=== PATIENT | male | born 1985 | race Caucasian/White ===

== ENCOUNTER 2023-04-22 11:40 | Emergency (ER) | payer OTHER, SELFPAY ==
--- NOTE | ~2023-04-22 | XR_ITS ---
EXAMINATION: XR chest 2V DATE: 04/22/2023 12:18 INDICATION: Midsternal chest pain TECHNIQUE: PA and lateral views of the chest are obtained. COMPARISON: None available FINDINGS: The lungs are free of acute opacities. No pleural effusion or pneumothorax. The cardiomedia stinal silhouette is normal. The visualized bones and soft tissues are unremarkable. IMPRESSION: 1. No acute cardiopulmonary abnormality. Reviewed, dictated and finalized at location F.
[2023-04-22 11:42] VITALS: BP 144/103; PULSE 73; RESP 13; O2SAT 97
--- NOTE | 2023-04-22 11:44 | ECG_ITS ---
Measurements Intervals [place] Rate: 65 P: 38 CA: 152 QRS: 2 QRSD: 90 T: -3 QT: 377 QTc: 394 Interpretive Statements SINUS RHYTHM VOLTAGE CRITERIA FOR LVH MINIMAL Q WAVES- HIGH LATERAL LEADS BORDERLINE T WAVE ABNORMALITY- INFERIOR LEADS BASELINE ARTIFACT- I, II, AVR, AVL, AVF BORDERLINE ECG NO PREVIOUS ECG AVAILABLE FOR COMPARISON Electronically Signed On 04-22-2023 20:20:42 CDT by Vicente Farooq D.O.
[2023-04-22 11:53] VITALS: PULSE 67
[2023-04-22 11:53] LABS: Basophils Percent Auto 0.4 % (0.2-1.2); Eosinophils Absolute Auto 0.1 K/mm3 (0-0.3); Eosinophils Percent Auto 1.5 % (0-4.4); Hematocrit 46.5 % (42.0-52.0); Hemoglobin 14.8 g/dL (14.0-18.0); Immature Granulocyte Absolute 0.01 K/mm3 (0.00-0.031); Immature Granulocyte Percent A 0.1 % (0-0.5); Lymphocytes Percent Auto 38.1 % (18.3-44.2); Mean Corpuscular HGB Conc 31.8 g/dl (32-36); Mean Corpuscular Hemoglobin 30.5 pg (26-34); Mean Corpuscular Volume 95.9 fl (80-100); Mean Platelet Volume 10.5 fl (7.4-10.4); Monocytes Absolute Auto 0.6 K/mm3 (0.1-0.6); Monocytes Percent Auto 8.9 % (2.6-8.5); Neutrophils Absolute Auto 3.5 K/mm3 (1.3-6.7); Platelet Count Result 216 k/mm3 (150-375); Red Blood Count 4.85 M/mm3 (4.6-6.20); Red Cell Distribution Width 12.4 % (11.5-14.5); White Blood Count 6.8 K/mm3 (4.5-10.0)
[2023-04-22 12:02] LABS: Prothrombin Time 13.8 Seconds (11.1-14.7)
[2023-04-22 12:04] LABS: Alanine Aminotransferase 29 U/L (6-50); Albumin Level 4.9 g/dL (3.5-5.1); Alkaline Phosphatase 84 U/L (38-126); Anion Gap 6 mmol/L (8-16); Aspartate Amino Transferase 29 U/L (17-59); Bilirubin,Total 0.7 mg/dL (0.2-1.3); Blood Urea Nitrogen 25 mg/dL (9-20); Calcium 9.5 mg/dL (8.4-10.2); Carbon Dioxide 30 mmol/L (22-30); Chloride 103 mmol/L (98-107); Estimated CRCL calculation 96 ml/min; Estimated Glomerular Filt Rate > 60; Glucose 100 mg/dL (65-110); Lipase 62 U/L (23-300); Partial Thromboplastin Time 30.4 SECONDS (22.3-36.8); Potassium 4.5 mmol/L (3.4-5.0); Sodium 139 mmol/L (137-145)
[2023-04-22] MEDS: ASPIRIN 81 MG CHEWABLE TABLET 324 MG PO (12:10)
[2023-04-22 12:11] VITALS: BP 127/94; PULSE 70; RESP 11; O2SAT 99
[2023-04-22 12:15] LABS: Troponin I < 0.012 ng/mL (0.000-0.034)
[2023-04-22] MEDS: SODIUM CHLORIDE 0.9% IV 1,000 ML 999 ML IV CONT (13:40)
[2023-04-22] MEDS: PANTOPRAZOLE SODIUM IV 40 MG VIAL IV PUSH (13:40)
[2023-04-22 13:44] VITALS: BP 119/75; PULSE 56; RESP 19; O2SAT 97
--- NOTE | 2023-04-22 14:33 | ED.CHESTPAIN ---
HPI - Chest Pain General Chief Complaint: Chest Pain Stated Complaint: chest and back pain Time Seen by Provider: 04/22/23 12:17 Source: patient Mode of arrival: ambulatory Limitations: no limitations History of Present Illness HPI narrative: This is a 37 year old male that presents to the ER for chest pain. Reports he was at [facility] [employer] when he started to feel a discomfort/burning in his throat. He then felt lightheaded and had pain in his chest and back. Denies any current discomfort. He ate a [employer] breakfast sandwich and drank a coffee this morning. Denies fever, cough, shortness of breath, vomiting, or lower extremity edema. Related Data Allergies Allergy/AdvReac Type Severity Reaction Status Date / Time No Known Allergies Allergy Verified 04/22/23 11:49 Review of Systems Review of Systems: CONSTITUTIONAL: Denies fever CARDIOVASCULAR: Reports chest pain. Denies edema. RESPIRATORY: Denies cough or dyspnea. GASTROINTESTINAL: Denies abdominal pain, nausea, vomiting All systems reviewed & are unremarkable except as noted in HPI and below PMFSH Past Medical History Medical History (Updated 04/22/23 @ 15:42 by Lorna Braga PA-C) Depression Social History Social History (Updated 04/22/23 @ 14:39 by Lorna Braga PA-C) Smoking status: Never smoker Exam Narrative: GENERAL: Well-appearing, well-nourished, and in no acute distress. HEAD: Normocephalic, atraumatic. EYES: EOMI. ENT: Mucous membranes moist. Oropharynx without tonsillar hypertrophy exudate or other lesions. NECK: No JVD CHEST: Clear to auscultation. No respiratory distress. No wheezes rales or rhonchi HEART: Regular rate and rhythm. No murmur heard. Normal peripheral pulses. ABDOMEN: Soft, nontender, nondistended, normal active bowel sounds. EXTREMITIES: Normal range of motion. No edema. SKIN: Warm, dry, no rash. NEURO: No focal deficits. Alert and oriented x3. PSYCH: Normal mood and affect Course Course Emergency Course: Patient updated on workup and agrees with plan of care Vital Signs Vital signs: Vital Signs Pulse Rate 73 04/22/23 11:42 Respiratory Rate 13 04/22/23 11:42 Blood Pressure 144/103 H 04/22/23 11:42 Pulse Oximetry 97 04/22/23 11:42 Oxygen Delivery Room Air 04/22/23 11:42 Pulse Rate 61 04/22/23 14:53 Respiratory Rate 12 04/22/23 14:53 Blood Pressure 121/80 04/22/23 14:53 Pulse Oximetry 99 04/22/23 14:53 Oxygen Delivery Room Air 04/22/23 11:42 MDM - Chest Pain MDM Narrative Medical decision making narrative: Patient presents to the ER for an episode of chest pain. He is afebrile and nontoxic appearing. Vitals are stable. CBC and metabolic panel without concerning findings. EKG without concerning changes and baseline and 3-hour troponin are negative. Chest x-ray without acute cardiopulmonary normality. PERC criteria negative. His heart score is 1. Patient and family updated on workup. Instructed to have follow up with primary doctor. He was given warnings to return to the ER Differential Diagnosis Differential diagnosis: Likely stable angina, atypical chest pain, st elevation myocardial infarction, costochondritis, chest pain and other (pneumonia, GERD) Lab Data Attestation: I reviewed the patient's lab results. 04/22/23 11:48 04/22/23 11:48 Labs: Lab Results 04/22/23 04/22/23 Range/Units 11:48 14:41 WBC 6.8 (4.5-10.0) K/mm3 RBC 4.85 (4.6-6.20) M/mm3 Hgb 14.8 (14.0-18.0) g/dL Hct 46.5 (42.0-52.0) % MCV 95.9 (80-100) fl MCH 30.5 (26-34) pg MCHC 31.8 L (32-36) g/dl RDW 12.4 (11.5-14.5) % Plt Count 216 (150-375) k/mm3 MPV 10.5 H (7.4-10.4) fl Immature Gran % (Auto) 0.1 (0-0.5) % Neut % (Auto) 51.0 (45.5-73.1) % Lymph % (Auto) 38.1 (18.3-44.2) % [place] % (Auto) 8.9 H (2.6-8.5) % Eos % (Auto) 1.5 (0-4.4) % Baso % (Auto) 0.4 (0.2-1.2) % Lymph # (Auto) 2.60 (0.9-3.2) K/m
[2023-04-22 14:53] VITALS: BP 121/80; PULSE 61; RESP 12; O2SAT 99
[2023-04-22 15:21] LABS: Troponin I < 0.012 ng/mL (0.000-0.034)
[2023-04-22 15:35] VITALS: TEMP 36.5
== END 2023-04-22 15:53 | disposition home or self-care (01) ==
PROVIDERS: Emergency Medicine; Emergency Provider Physician Assistant
DX: R07.89 Other chest pain (principal); R42 Dizziness and giddiness; R94.31 Abnormal electrocardiogram [ECG] [EKG]
CPT/HCPCS: 36415; 71046; 80053; 83690; 84484; 85025; 85610; 85730; 93005; 96361; 96374; 99284; A9270; C9113; J7030